=== PATIENT | female | born 1975 | race Hispanic/Latino ===

== ENCOUNTER 2018-09-10 10:20 | Observation (INO) | payer OTHER ==
[~2018-09-10] VITALS: Ht 157.5 cm; Wt 116.1 kg
[2018-09-10] MEDS ORDERED: ONDANSETRON HCL INJ 2MG/ML 2ML 2 MG/ML VIAL IV STA (11:24)
[2018-09-10] MEDS ORDERED: SODIUM CHLORIDE 0.9% 1000ML 1,000 ML IV ONE ×2 (11:30→15:15)
[2018-09-10] MEDS ORDERED: MORPHINE SULFATE INJ 4 MG/ML INJ 1ML IV ONE ×2 (11:45→15:15)
[2018-09-10] MEDS ORDERED: ONDANSETRON HCL INJ 2MG/ML 2ML 2 MG/ML VIAL ONE (11:50)
[2018-09-10] MEDS ORDERED: MORPHINE SULFATE INJ 4 MG/ML INJ 1ML ONE ×2 (11:51→15:48)
[2018-09-10] MEDS ORDERED: SODIUM CHLORIDE 0.9% 1000ML 1,000 ML ONE ×3 (11:51→17:24)
--- NOTE | 2018-09-10 14:14 | Diagnostic Imaging Report ---
EXAM: CT Abdomen and Pelvis WITH contrast INDICATION: ^[id number] ^1323 COMPARISON: None. TECHNIQUE: Abdomen and pelvis were scanned utilizing a multidetector helical scanner from the lung base to the pubic symphysis after administration of IV contrast. Coronal and sagittal reformations were obtained. Dose modulation, iterative reconstruction, and/or weight based adjustment of the mA/kV was utilized to reduce the radiation dose to as low as reasonably achievable. Routine protocol was performed. Scan was performed when during portal venous phase. IV CONTRAST: 100 Isovue-370 mL of Omnipaque 300 ORAL CONTRAST: Gastrografin COMPLICATIONS: None RADIATION DOSE: Total DLP: 1205.22 mGy*cm Estimated effective dose: (DLP x 0.015 x size factor) mSv CTDIvol has been reviewed. It is below the limits set by the Radiation Protocol Committee (RPC). FINDINGS: LINES and TUBES: None. LOWER THORAX: Unremarkable HEPATOBILIARY: No focal hepatic lesions. No biliary ductal dilation. GALLBLADDER: No radio-opaque stones or sludge. No wall thickening. SPLEEN: No splenomegaly. PANCREAS: No focal masses or ductal dilatation. ADRENALS: No adrenal nodules KIDNEYS/URETERS: Kidneys enhance symmetrically. No hydronephrosis. No cystic or solid mass lesions. No stones. GI TRACT: Dilated loops of small bowel up to the level of the ventral hernia in the right lower quadrant. The distal ileal loops within the hernia are collapsed. Trace oral contrast within distal esophagus, suggestive of gastroesophageal reflux. PELVIC ORGANS/BLADDER: Thin hyperdense line within endometrium, likely an IUD. Bladder is Unremarkable. LYMPH NODES: No lymphadenopathy. VESSELS: Unremarkable. PERITONEUM / RETROPERITONEUM: No free air or fluid. BONES: L5-S1 degenerative changes. SOFT TISSUES: Large right lower quadrant ventral hernia, containing collapsed proximal ascending colon/cecum and distal ileal loops. There is also trace fluid and fat stranding within hernia sac. IMPRESSION: 1. At least partial small bowel obstruction with transition point within large right lower quadrant probably incarcerated ventral hernia. Recommend surgical consult. Signed by: Dr. Basil Palma MD on 09/10/2018 2:11 PM
[2018-09-10] MEDS ORDERED: ONDANSETRON HCL INJ 2MG/ML 2ML 2 MG/ML VIAL IV NR (15:01)
[2018-09-10] MEDS ORDERED: MORPHINE SULFATE 2 MG/ML SYR 1ML IV PRN (15:30)
--- OUTSIDE RECORDS SUMMARY | 2018-09-10 15:36 | XMS REPORT ---
Author Author [facility] Address Unknown Phone Unavailable Care Team Providers Care Corn Cooker Name Role Phone Oliver GIBSON Unavailable Unavailable Problems This patient has no known problems. Allergies, Adverse Reactions, Alerts This patient has no known allergies or adverse reactions. Medications This patient has no known medications. Results Test Description Test Time Test Comments Text Results Atomic Results Result Comments CT ABD/PEL WITH CONTRAST-HOPD 2018-09-10 14:01:00 [place] [address] Patient Name: YINA TARANGO MR #: [id number] : 1975 Age/Sex: 43/F Req #: [id number] Adm Physician: Ordered by: RICHARD GIBSON MD Report #: [id number] Location: [facility] Room/Bed: Procedure: HOPD/CT ABD/PEL WITH CONTRAST-HOPD Exam Date: 09/10/18 Exam Time: 1323 REPORT STATUS: Signed EXAM: CT Abdomen and Pelvis WITH contrast INDICATION: [id number] COMPARISON: None. TECHNIQUE: Abdomen and pelvis were scanned utilizing a multidetector helical scanner from the lung base to the pubic symphysis after administration of IV contrast. Coronal and sagittal reformations were obtained. Dose modulation, iterative reconstruction, and/or weight based adjustment of the mA/kV was utilized to reduce the radiation dose to as low as reasonably achievable. Routine protocol was performed. Scan was performed when during portal venous phase. IV CONTRAST: 100 Isovue-370 mL of Omnipaque 300 ORAL CONTRAST: Gastrografin COMPLICATIONS: None RADIATION DOSE: Total DLP: 1205.22 mGy*cm Estimated effective dose: (DLP x 0.015 x size factor) mSv CTDIvol has been reviewed. It is below the limits set by the Radiation Protocol Committee (RPC). FINDINGS: LINES and TUBES: None. LOWER THORAX: Unremarkable HEPATOBILIARY: No focal hepatic lesions. No biliary ductal dilation. GALLBLADDER: No radio-opaque stones or sludge. No wall thickening. SPLEEN: No splenomegaly. PANCREAS: No focal masses or ductal dilatation. ADRENALS: No adrenal nodules KIDNEYS/URETERS: Kidneys enhance symmetrically. No hydronephrosis. No cystic or solid mass lesions. No stones. GI TRACT: Dilated loops of small bowel up to the level of the ventral hernia in the right lower quadrant. The distal ileal loops within the hernia are collapsed. Trace oral contrast within distal esophagus, suggestive of gastroesophageal reflux. PELVIC ORGANS/BLADDER: Thin hyperdense line within endometrium, likely an IUD. Bladder is Unremarkable. LYMPH NODES: No lymphadenopathy. VESSELS: Unremarkable. PERITONEUM / RETROPERITONEUM: No free air or fluid. BONES: L5-S1 degenerative changes. SOFT TISSUES: Large right lower quadrant ventral hernia, containing collapsed proximal ascending colon/cecum and distal ileal loops. There is also trace fluid and fat stranding within hernia sac. IMPRESSION: 1. At least partial small bowel obstruction with transition point within large right lower quadrant probably incarcerated ventral hernia. Recommend surgical consult. Signed by: Dr. Basil Hennessy MD on 09/10/2018 2:11 PM Dictated By: BASIL HENNESSY MD [id number] Transcribed By: OLIVIA on 09/10/18 1411 COPY TO: RICHARD GIBSON MD
--- NOTE | 2018-09-10 17:09 | Diagnostic Imaging Report ---
EXAM: Abdomen 2 radiographs INDICATION: Bowel obstruction. NG tube confirmation. COMPARISON: Same day CT FINDINGS: See impression. IMPRESSION: Nasogastric tube is questionably visualized on one view at the level of the diaphragms with obscured tip. Study is Limited by body habitus. Signed by: Dr. Basil Palma MD on 09/10/2018 5:06 PM
[2018-09-10] MEDS: SODIUM CHLORIDE 0.9% 1000ML 1,000 ML IV SCH (17:26)
--- NOTE | 2018-09-10 17:28 | NUR ---
called [facility] to transport pt to hospital
--- NOTE | 2018-09-10 17:36 | NUR ---
Report called to [facility] Foy pt is going to room 185
--- NOTE | 2018-09-10 18:10 | NUR ---
Patient arrived via stretcher with an admitting diagnosis of SBO, NGT clamped at this time. Vital signs are stable. Patient instructed to call for assistance as needed and verbalized understanding. Call samson within reach.
[2018-09-10 18:15] VITALS: BP 134/77
--- NOTE | 2018-09-10 19:03 | NUR ---
Bedside report and walking rounds complete. Pt resting in bed and in no apparent distress. Pt has NG tube to low cont. suction. Pt has no complaints of pain. All safety measures ensured and pt call samson near. Pt encouraged to use call samson for assistance.
[2018-09-10 19:20] VITALS: BP 134/77
[2018-09-10 19:50] VITALS: BP 134/77
[2018-09-10 20:00] VITALS: BP 135/77
--- NOTE | 2018-09-10 20:50 | NUR ---
NG tube flushed with 30cc NS. Pt tolerated well and NG functioning properly.
--- NOTE | 2018-09-10 21:50 | NUR ---
Pt took shower. NG tube secured.
[2018-09-10] MEDS: ONDANSETRON HCL INJ 2MG/ML 2ML 2 MG/ML VIAL IV PRN (22:57)
[2018-09-10] MEDS: MORPHINE SULFATE INJ 4 MG/ML INJ 1ML IV PRN (22:57)
[2018-09-11] VITALS (10 sets, daily range): BP systolic 96–138; BP diastolic 63–96
[2018-09-11] MEDS: SODIUM CHLORIDE 0.9% 1000ML 1,000 ML IV SCH ×4 (01:02→23:21)
--- NOTE | 2018-09-11 02:03 | NUR ---
Walking rounds. Pt sleeping in bed and in no apparent distress. NG tube flushed with 30cc NS. Pt tolerated well and NG functioning properly.
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
[2018-09-11 05:34] LABS: BASOPHILS % 0.4 % (0.0-1.0); EOSINOPHILS # (AUTO) 0.2 (0.0-0.4); EOSINOPHILS % 2.5 % (0.0-6.0); HEMATOCRIT 32.8 % (34.2-44.1); HEMOGLOBIN 10.3 g/dL (12.0-16.0); LYMPHOCYTES # (AUTO) 1.8 (1.0-3.2); LYMPHOCYTES % 22.1 % (18.0-39.1); MEAN CORPUSCULAR HGB CONC 31.4 g/dL (31-35); MEAN CORPUSCULAR VOLUME 82.8 fL (81-99); MONOCYTES # (AUTO) 0.5 (0.2-0.8); MONOCYTES % 5.6 % (4.4-11.3); NEUTROPHILS # (AUTO) 5.5 (2.1-6.9); PLATELET COUNT 284 x10e3/uL (140-360); RED BLOOD COUNT 3.96 x10e6/uL (3.6-5.1); RED CELL DISTRIBUTION WIDTH 15.8 % (11.7-14.4)
[2018-09-11 05:54] LABS: INR 0.93
[2018-09-11 05:55] LABS: PARTIAL THROMBOPLASTIN TIME 32.1 seconds (23.8-35.5)
[2018-09-11 06:02] LABS: ANION GAP 8.6 mmol/L (8-16); BLOOD UREA NITROGEN 8 mg/dL (7-26); BUN/CREATININE RATIO 13 (6-25); CALCIUM 8.5 mg/dL (8.4-10.2); CARBON DIOXIDE 25 mmol/L (22-29); CHLORIDE 106 mmol/L (98-107); CREATININE, SERUM 0.61 mg/dL (0.57-1.11); EST GLOMERULAR FILTRATION RATE > 60 ML/MIN (60-); GLUCOSE 106 mg/dL (74-118); LIPASE 29 U/L (8-78); MAGNESIUM 1.9 MG/DL (1.3-2.1); PHOSPHORUS 3.2 MG/DL (2.3-4.7); POTASSIUM 3.6 mmol/L (3.5-5.1); SODIUM 136 mmol/L (136-145)
--- NOTE | 2018-09-11 06:05 | NUR ---
NG tube flushed with 30cc NS. Pt tolerated well and NG functioning properly.
[2018-09-11 06:27] LABS: THYROID STIMULATING HORMONE 1.527 uIU/mL (0.350-4.940)
--- NOTE | 2018-09-11 06:31 | Diagnostic Imaging Report ---
EXAMINATION: CHEST SINGLE (PORTABLE) INDICATION: ^PRE-OP ^[id number] ^0530 COMPARISON: None FINDINGS: AP view TUBES and LINES: There appears to be an NG/OG tube overlying the upper chest. However distal catheter is not well visualized. LUNGS: Lungs are well inflated. Consolidation in the right lower lobe is increased since yesterday CT abdomen and pelvis. PLEURA: No pleural effusion or pneumothorax. HEART AND MEDIASTINUM: The cardiomediastinal silhouette is unremarkable.. BONES AND SOFT TISSUES: No acute osseous lesion. Soft tissues are unremarkable. UPPER ABDOMEN: No free air under the diaphragm. IMPRESSION: There appears to be an NG/OG tube which is poorly visualized. Worsening right lower lobe airspace opacity suggestive of worsening atelectasis and/or aspiration. Signed by: Dr. Shani Gorman M.D. on 09/11/2018 6:28 AM
--- NOTE | 2018-09-11 07:20 | NUR ---
Bedside report and walking rounds complete.
[2018-09-11] MEDS: MORPHINE SULFATE INJ 4 MG/ML INJ 1ML IV PRN ×2 (09:34→22:18)
[2018-09-11] MEDS: ONDANSETRON HCL INJ 2MG/ML 2ML 2 MG/ML VIAL IV PRN (09:34)
--- NOTE | 2018-09-11 10:59 | NUR ---
NG tube irrigated with 30cc of NS. Pt tolerated well.
--- NOTE | 2018-09-11 15:17 | NUR ---
NGT irrigated with 30cc. Pt tolerated well.
--- NOTE | 2018-09-11 18:07 | NUR ---
Pt resting in bed at this time. No s/s of resp distress or SOB. NGT in L nares, on low suction. Pt tolerating well. IV patent to R AC, no redness or swelling to insertion site. Bed in low position. No c/o pain to ABD. IV fluids being administered. A&O x4. Pt is able to ambulate by self, no assistance needed. Call light within reach.
--- NOTE | 2018-09-11 19:30 | NUR ---
Patient went to radiology department via wheelchair.
--- NOTE | 2018-09-11 19:45 | NUR ---
Patient is back to room from IR. Notified of Dr. Stafford order to pull out NGT. Patient wants to wait for abdominal x ray result and Dr. Stafford advice before pulling out NGT.
--- NOTE | 2018-09-11 20:31 | Diagnostic Imaging Report ---
ABDOMEN ACUTE SERIES W/PA CXR - 3 views HISTORY: 43-year-old female Tubal ligation, rule out small bowel obstruction COMPARISON: CT abdomen/pelvis dated 09/10/2018 FINDINGS: Nasogastric tube with tip near the GE junction. Consider advancement. Nonobstructive bowel pattern. Radiodense contrast material throughout the colon and rectum from prior CT dated 09/10/2018. The lungs are clear. IMPRESSION: No acute radiographic abnormality. No evidence of bowel obstruction. Signed by: Carlos Mooney MD on 09/11/2018 8:28 PM
--- NOTE | 2018-09-11 21:00 | NUR ---
Dr. Stafford notified of abdominal x ray result.
--- NOTE | 2018-09-11 21:15 | NUR ---
NGT pulled out as ordered.
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
[2018-09-12 04:46] VITALS: BP 103/65
[2018-09-12 05:46] LABS: ANION GAP 9.5 mmol/L (8-16); BLOOD UREA NITROGEN 5 mg/dL (7-26); BUN/CREATININE RATIO 8 (6-25); CALCIUM 8.3 mg/dL (8.4-10.2); CARBON DIOXIDE 26 mmol/L (22-29); CHLORIDE 107 mmol/L (98-107); CREATININE, SERUM 0.62 mg/dL (0.57-1.11); EST GLOMERULAR FILTRATION RATE > 60 ML/MIN (60-); GLUCOSE 100 mg/dL (74-118); MAGNESIUM 1.9 MG/DL (1.3-2.1); PHOSPHORUS 3.2 MG/DL (2.3-4.7); POTASSIUM 3.5 mmol/L (3.5-5.1); SODIUM 139 mmol/L (136-145)
[2018-09-12 07:33] VITALS: BP 122/61
[2018-09-12 11:33] VITALS: BP 114/70
[2018-09-12] MEDS: SODIUM CHLORIDE 0.9% 1000ML 1,000 ML IV SCH (12:22)
[2018-09-12] MEDS ORDERED: ACETAMINOPHEN/CODEINE 300MG - 30MG TAB PO PRN (13:15)
--- NOTE | 2018-09-12 14:50 | NUR ---
IV leaking to R AC. New IV applied to L AC.
[2018-09-12 14:54] VITALS: BP 114/70
[2018-09-12 15:39] VITALS: BP 126/64
--- NOTE | 2018-09-13 04:56 | History and Physical ---
PRIMARY CARE DOCTOR: Katrina Patterson. CHIEF COMPLAINT: Abdominal pain. HISTORY OF PRESENT ILLNESS: Ms. Key is a pleasant 43-year-old female with abdominal pain. The patient with onset x1 day. The patient with cramping and sharp quality. It was a pattern of worsening. The patient with the pain mostly in the right upper quadrant, also right lower quadrant. The patient last had a bowel movement the day before, but was having problems passing gas. She came to the emergency room with complicated history of GI infections and surgeries. In the emergency room, the patient was noted to have on abdominal CT, partial small-bowel obstruction with assessment of intestinal band adhesions. The patient at this point was recommended for inpatient observation and therapy. DICTATION ENDS HERE MD VERENICE Ann/JAMES /[id number]
== END 2018-09-12 18:05 | disposition home or self-care (01) ==
LOC: FSED 10:20 → ERHOLD 15:31 → IMCU 18:24
PROVIDERS: ADMIT Internal Medicine; ATTEND Internal Medicine
DX: K56.51 Intestinal adhesions [bands], with partial obstruction (principal); Z98.84 Bariatric surgery status; K46.9 Unspecified abdominal hernia without obstruction or gangrene; E66.9 Obesity, unspecified; Z68.42 Body mass index [BMI] 45.0-49.9, adult
CPT/HCPCS: 36415 ×2; 71045 ×2; 74022; 74177; 80048 ×2; 80053; 80076; 81003; 81025; 83690; 83735 ×2; 84100 ×2; 84443; 85025 ×2; 85610; 85730; 96374; 99284; G0378 ×3; J2270 ×2; J2405 ×2; J7030 ×3